=== PATIENT | female | born 1980 | race Caucasian/White ===

== ENCOUNTER 2021-11-30 17:29 | Inpatient (IN) | payer MEDICAID ==
[~2021-11-30] VITALS: Ht 152.4 cm; Wt 80.7 kg
[2021-11-30 17:30] VITALS: BP_SYST 128
--- NOTE | 2021-11-30 17:35 | NUR ---
Patient triaged and placed in waiting room. VSS and patient appears in no acute distress at this time. Accompanied by MOTHER, awaiting available bed, and MD notified of need for MSE.
--- NOTE | 2021-11-30 17:52 | NUR ---
BROUGHT BACK TO BED #3 AND REPORT GIVEN TO SACHIN
[2021-11-30 18:08] LABS: BASOPHILS % (AUTO) 0.3 % (0.0-2.0); EOSINOPHILS # (AUTO) 0.1 K/uL (0.0-0.4); EOSINOPHILS % (AUTO) 0.7 % (0.0-4.0); HEMATOCRIT 31.3 % (36-48); LYMPHOCYTES # (AUTO) 0.8 K/uL (1.0-5.5); LYMPHOCYTES % (AUTO) 5.3 % (20.5-51.5); MEAN CORPUSCULAR VOLUME 89 fL (79.0-98.0); MONOCYTES # (AUTO) 1.1 K/uL (0.0-1.0); MONOCYTES % (AUTO) 7.4 % (1.7-9.3); NEUTROPHILS # (AUTO) 12.6 K/uL (1.8-7.7); NEUTROPHILS % (AUTO) 86.3 % (40.0-70.0); PLATELET COUNT (AUTO) 305 K/uL (130-430); RED BLOOD CELL COUNT(AUTO) 3.53 MIL/uL (4.2-6.2); RED CELL DISTRIBUTION WIDTH 15.7 % (9.0-15.0); WHITE BLOOD COUNT (AUTO) 14.6 K/uL (4.8-10.8)
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
[2021-11-30] MEDS ORDERED: MORPHINE 4 MG INJ. 4 MG/ML VIAL IVP ONE (18:15)
[2021-11-30] MEDS ORDERED: NACL 0.9% 1,000 ML IV ONE (18:15)
[2021-11-30 18:22] LABS: CALCIUM 8.5 mg/dL (8.4-11.0); CREATININE 0.92 mg/dL (0.55-1.30); POTASSIUM 3.3 mmol/L (3.5-5.1)
[2021-11-30 18:34] LABS: ALBUMIN 3.3 g/dL (3.4-4.8); TOTAL BILIRUBIN 0.7 mg/dL (0.0-1.0)
--- NOTE | 2021-11-30 21:17 | NUR ---
perry obtained and sent to lab
[2021-11-30] MEDS ORDERED: METHYLERGONOVINE MALEATE 0.2 MG/ML AMP IM ONE ×2 (21:45→22:30)
[2021-11-30] MEDS ORDERED: LR 1,000 ML IV ONE (22:30)
[2021-11-30] MEDS ORDERED: MORPHINE 4 MG INJ. 4 MG/ML VIAL IVP PRN (22:30)
--- NOTE | 2021-11-30 22:40 | NUR ---
Admit bed requested Patient will be admitted to care of Dr. JACOB Admitted to MS,OBS unit. Diagnosis SPONTANEOUS AB Inpatient (Yes or No) NO Observation (Yes or No) YES Orientation concerns or request close to nursing station (Yes or No) NO Covid Status PENDING On vent or bipap NO Isolation requirements NO Needs a sitter NO From Home (Yes or if No enter name of facility) YES Requires Dialysis (Yes or No) NO Med Rec Completed (Yes of No) YES
--- NOTE | 2021-11-30 23:38 | NUR ---
Pt resting comfortably in bed, no signs of acute distress. Breathing adequately on RA. Denies any pain/discomfort at this time.
[2021-11-30] MEDS ORDERED: METHYLERGONOVINE MALEATE 0.2 MG/ML AMP ONE (23:41)
--- NOTE | 2021-12-01 00:44 | NUR ---
Patient will be admitted to care of Dr Garibay. Admitted to MS unit under observation. Will go to room 118B. Belongings list completed. Complete and up to date summary report printed. Report given to GOLDIE Ventura with opportunity for questions.
--- NOTE | 2021-12-01 00:49 | NUR ---
ADMISSION: The patient, FLAQUITO HENAO, 41 y/o, F admitted by RADAMES JACOB MD, was given written information regarding hospital policies, unit procedures and contact persons. Valuables were checked and DOCUMENTED.
[2021-12-01] MEDS ORDERED: ONDANSETRON HCL 4 MG/2 ML VIAL IVP PRN (01:00)
--- NOTE | 2021-12-01 01:00 | NUR ---
COMMUNICATION W/ DR. CECIL JACOB PAGED AT THIS TIME, HE WAS MADE AWARE THAT PATIENT IS COMPLAINING OF NAUSEA, MD GAVE NEW ORDERS. ALL ORDERS READ BACK, AND VERIFIED.
[2021-12-01 01:54] VITALS: BP_SYST 125
[2021-12-01] MEDS: LR 1,000 ML IV SCH ×2 (02:00→09:00)
[2021-12-01 05:25] VITALS: BP_SYST 136
[2021-12-01 08:00] VITALS: BP_SYST 133
[2021-12-01 08:50] VITALS: BP_SYST 132
--- NOTE | 2021-12-01 11:58 | NUR ---
[employer] met with pt. to provide her with support and resources. UTILITY T[employer]ER [employer] met with pt. and pts. sister, Ariana at bedside. UTILITY T[employer]ER [employer] introduced self and asked pt. how she was doing. Pt. was pleasant, kind and easily participated in this interview. 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 Pt. stated when she first began having pain and bleeding, she had gone to [facility]. She was in so much pain and it took so long for her to see any medical records secretary. She then came to [facility]. Pt. stated this would have been her 5th baby. She has a 20 year old, a 17 year old with Autism and a 14 year old and a 7 year old. The dad for this lost baby is not involved in her life anymore. Pt. asked if she could get help with medical. UTILITY TENDER [employer]ING referred to the facesheet and notified pt. that she does have medical. UTILITY TENDER [employer]ING shared with Pt. some resources for bereavement and others for the loss of a baby. Pt. was very grateful and thanked UTILITY T[employer]ER [employer]ING several times. UTILITY T[employer]ER [employer]ING will remain available as needed.
[2021-12-01 12:00] VITALS: BP_SYST 125
[2021-12-01 13:14] VITALS: BP_SYST 133
--- NOTE | 2021-12-01 14:15 | NUR ---
AAOX4 NAD NOTED. DISCHARGE INSTRUCTION PROVIDED TO PATIENT. PATIENT VERBALIZED UNDERSTANDING WITH TEACHINGS. PT SIGNED DISCHARGE INSTRUCTIONS.PT REQUESTED WORK EXCUSE. WORK EXCUSE WAS NOT IN PACKET. LEFT ROOM TO PRINT WORK EXCUSE. UPON RETURNING TO ROOM PT IV FOUND ON BEDSIDE TABLE WITH PATIENT COPY OF DC INSTRUCTIONS. PT NOT IN ROOM. SEARCHED RESTROOM RESTROOM AND UNIT. PATIENT NOT FOUND.
== END 2021-12-01 14:00 | disposition home or self-care (01) | DRG 564 ==
LOC: SED 17:29 → SMU 22:30 → OBSVTOIN 12-01 10:47
PROVIDERS: ADMIT Obstetrics & Gynecology; ATTEND Obstetrics & Gynecology
DX: O03.9 Complete or unspecified spontaneous abortion without complication (principal); Z20.822 Contact with and (suspected) exposure to COVID-19
CPT/HCPCS: 36415; 76801; 76817; 80053; 84702; 85025; 96372; 96374; 99291; G0378; J2210; J2270